=== PATIENT | male | born 1995 | race Asian ===

== ENCOUNTER → 2017-06-05 | Outpatient (CLI) | payer OTHER | END | disposition home or self-care (01) | LOC: RD 11:26 | DX: R05 Cough (principal) ==

== ENCOUNTER → 2020-12-07 | Outpatient (CLI) | payer OTHER ==
[2020-12-07 07:48] LABS: BASOPHIL % 0.7 % (0.2-1.5); PLATELET COUNT 274 x10^3mcL (152-348); RED CELL DISTRIBUTION WIDTH 13.2 % (12.1-16.2)
[2020-12-07 08:18] LABS: ALBUMIN 4.5 g/dL (3.4-5.0); ALKALINE PHOSPHATASE 71 U/L (46-116); ALT/SGPT 112 U/L (16-63); AST/SGOT 45 U/L (15-37); BILIRUBIN DIRECT 0.23 mg/dL (0.0-0.2); BILIRUBIN TOTAL 0.94 mg/dL (0.20-1.00); CALCIUM 9.2 mg/dL (8.5-10.1); CARBON DIOXIDE 27.9 mmol/L (21-32); CHLORIDE SERUM 101 mmol/L (98-107); CHOLESTEROL 193 mg/dL (<200); CHOLESTEROL/HDL RATIO 3.7; CREATININE SERUM 1.1 mg/dL (0.7-1.3); GFR1 > 60 mL/min; GLUCOSE SERUM 102 mg/dL (74-106); HDL CHOLESTEROL 52 mg/dL (40-60); POTASSIUM SERUM 3.9 mmol/L (3.5-5.1); SODIUM SERUM 139 mmol/L (136-145); TRIGLYCERIDES 57 mg/dL (<150)
[2020-12-07 08:22] LABS: TOTAL PROTEIN, SERUM 8.3 g/dL (6.4-8.2)
[2020-12-07 09:50] LABS: rbc morphology (normal/abnorm) NORMAL (NORMAL)
== END | disposition home or self-care (01) ==
LOC: LB 07:05
PROVIDERS: ATTEND Internal Medicine
DX: Z00.00 Encounter for general adult medical examination without abnormal findings (principal)

== ENCOUNTER → 2020-12-16 | Outpatient (CLI) | payer OTHER | END | disposition home or self-care (01) | LOC: US 09:09 | PROVIDERS: ATTEND Internal Medicine | PROC: BW40ZZZ Ultrasonography of Abdomen (ICD-10-PCS; principal; 2020-12-16) | DX: R74.01 Elevation of levels of liver transaminase levels (principal) ==